=== PATIENT | male | born 1980 | race Caucasian/White ===

== ENCOUNTER 2017-09-18 13:07 | Inpatient (IN) | payer SELFPAY ==
[2017-09-18] MEDS ORDERED: CEFTRIAXONE INJ 1000 MG VIAL IV ONE (14:30)
--- NOTE | 2017-09-18 14:30 | ER Document Report ---
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 No chills or sweats. No anticoagulants. The warm, read, lymphangitis/erythema extends from anterior left lower tibial area to left medial upper thigh. No posterior calf erythema. No hx MRSA. TRAVEL OUTSIDE OF THE [place] IN LAST 30 DAYS: No - Related Data Allergies/Adverse Reactions: No Known Allergies Allergy (Verified 09/18/17 13:08) Past Medical History - Immunizations Immunizations up to date: Yes Hx Diphtheria, Pertussis, Tetanus Vaccination: No Physical Exam - Vital signs Vitals: Temp Pulse Resp BP Pulse Ox 100.1 F 120 H 16 149/83 H 96 09/18/17 13:12 09/18/17 13:12 09/18/17 13:12 09/18/17 13:12 09/18/17 13:12 Course - Vital Signs Vital signs: Temp Pulse Resp BP Pulse Ox 100.1 F 120 H 16 149/83 H 96 09/18/17 13:12 09/18/17 13:12 09/18/17 13:12 09/18/17 13:12 09/18/17 13:12
[2017-09-18] MEDS ORDERED: VANCOMYCIN HCL INJ 1000 MG VIAL IV ONE (14:33)
[2017-09-18 15:39] LABS: ABSOLUTE LYMPHOCYTES (AUTO) 1.2 10^3/uL (0.5-4.7); ABSOLUTE MONOCYTES (AUTO) 0.8 10^3/uL (0.1-1.4); ABSOLUTE NEUT (AUTO) 8.4 10^3/uL (1.7-8.2); BASOPHILS % (AUTO) 0.3 % (0-2); HEMATOCRIT 43.8 % (37.9-51.0); HEMOGLOBIN 15.4 g/dL (13.5-17.0); LYMPHOCYTES % (AUTO) 11.6 % (13-45); MEAN CORPUSCULAR HEMOGLOBIN 31.5 pg (27.0-33.4); MEAN CORPUSCULAR HGB CONC 35.2 g/dL (32.0-36.0); MEAN CORPUSCULAR VOLUME 90 fl (80-97); MONOCYTES % (AUTO) 7.6 % (3-13); PLATELET COUNT 175 10^3/uL (150-450); RED BLOOD COUNT 4.88 10^6/uL (4.35-5.55); RED CELL DISTRIBUTION WIDTH 12.6 % (11.5-14.0); SEGMENTED NEUTROPHILS % (AUTO) 80.5 % (42-78); TOTAL CELLS COUNTED % (AUTO) 100 %; WHITE BLOOD COUNT 10.5 10^3/uL (4.0-10.5)
[2017-09-18 15:54] LABS: ALANINE AMINOTRANSFERASE 44 U/L (21-72); ALKALINE PHOSPHATASE 75 U/L (38-126); ANION GAP 8 (5-19); ASPARTATE AMINO TRANSFERASE 36 U/L (17-59); BILIRUBIN,DIRECT 0.3 mg/dL (0.0-0.4); BILIRUBIN,TOTAL 0.9 mg/dL (0.2-1.3); BLOOD UREA NITROGEN 10 mg/dL (7-20); CALCIUM 9.2 mg/dL (8.4-10.2); CARBON DIOXIDE 28 mmol/L (22-30); CHLORIDE 99 mmol/L (98-107); GLUCOSE 123 mg/dL (75-110); SODIUM 134.9 mmol/L (137-145); TOTAL PROTEIN 7.2 g/dL (6.3-8.2)
--- NOTE | 2017-09-18 16:05 | ER Document Report ---
ED Skin Rash/Insect Bite/Abscs - General Mode of Arrival: Ambulatory Information source: Patient TRAVEL OUTSIDE OF THE [place] IN LAST 30 DAYS: No <JIGAR HOOD - Last Filed: 09/18/17 16:47> <MICHEAL GODINEZ - Last Filed: 09/21/17 09:29> - General Chief Complaint: Leg Pain Stated Complaint: LEG PAIN Time Seen by Provider: 09/18/17 14:24 Notes: Patient is a 36-year-old male who presents to the emergency department today with complaints of a left lower extremity rash. Patient states 2 days ago he was helping his sister move and he thought he might have pulled a thigh muscle but thought nothing of it. Patient also mentions that he knows that he hit his left medial lawson on a bed frame but did not think anything of that either at the time. Patient states the next day when he woke up (yesterday) he had this rash. Patient states it does not seem to be moving "that fast" and describes it as being essentially the same over the last 24 hours. Patient denies a history of diabetes. (JIGAR HOOD) - Related Data Allergies/Adverse Reactions: No Known Allergies Allergy (Verified 09/18/17 13:08) Past Medical History - General Information source: Patient - Social History Smoking Status: Never Smoker Cigarette use (# per day): No Frequency of alcohol use: None Drug Abuse: None Lives with: Family Family History: Reviewed & Not Pertinent - Medical History Medical History: Negative Endocrine Medical History: Denies: Hx Diabetes Mellitus Type 1, Hx Diabetes Mellitus Type 2 Surgical Hx: Negative - Immunizations Immunizations up to date: Yes Hx Diphtheria, Pertussis, Tetanus Vaccination: No <JIGAR HOOD - Last Filed: 09/18/17 16:47> Review of Systems - Review of Systems Constitutional: No symptoms reported EENT: No symptoms reported Cardiovascular: No symptoms reported Respiratory: No symptoms reported Gastrointestinal: No symptoms reported Genitourinary: No symptoms reported Male Genitourinary: No symptoms reported Musculoskeletal: No symptoms reported Skin: See HPI, Rash - LLE w/ pain Hematologic/Lymphatic: No symptoms reported Neurological/Psychological: No symptoms reported -: Yes All other systems reviewed and negative <JIGAR HOOD - Last Filed: 09/18/17 16:47> Physical Exam <JIGAR HOOD - Last Filed: 09/18/17 16:47> <MICHEAL GODINEZ - Last Filed: 09/21/17 09:29> - Vital signs Vitals: Temp Pulse Resp BP Pulse Ox 100.1 F 120 H 16 149/83 H 96 09/18/17 13:11 09/18/17 13:11 09/18/17 13:11 09/18/17 13:11 09/18/17 13:11 - Notes Notes: Physical Exam: General: Alert, appears well. HEENT: Normocephalic. Atraumatic. PERRL. Extraocular movements intact. Oropharynx clear. Neck: Supple. Non-tender. Respiratory: No respiratory distress. Clear and equal breath sounds bilaterally. Cardiovascular: Tachycardic, regular rhythm. Abdominal: Normal Inspection. Non-tender. No distension. Normal Bowel Sounds. Back: Non-tender. No deformity or step off. Extremities: Moves all four extremities. Upper extremities: Normal inspection. Normal ROM. Lower extremities: See skin exam. Pitting edema of left lower extremity. Normal ROM. Neurological: Normal cognition. AAOx4. Normal speech. Psychological: Normal affect. Normal Mood. Skin: LLE is hot to the touch. Large area of purpura to distal LLE with associated erythema tracking up to the proximal inner thigh. Tracking erythema is blanchable. Small bulla to the medial distal left lower extremity, lesion measuring 0.5 cm. (JIGAR HOOD) Course - Laboratory Result Diagrams: 09/18/17 15:22 09/18/17 15:22 <JIGAR HOOD - Last Filed: 09/18/17 16:47> - Laboratory Result Diagrams: 09/21/17 04:46 09/21/17 04:46 <MICHEAL GODINEZ - Last Filed: 09/21/17 09:29> - Re-evaluation Re-evalutation: 09/18/17 17:03 Patient found to have cellulitis of left lower extremity and absence of any necrotizing fasciitis per CT. Patient started on Zosyn and vancomycin. Patient will be admitted to Dr. Fuchs for medical management. (MICHEAL GODINEZ) - Vital Signs Vital signs: Temp Pulse Resp BP Pulse Ox 98.1 F 77 18 115/55 L 99 09/21/17 07:13 09/21/17 07:13 09/21/17 07:13 09/21/17 07:13 09/21/17 07:13 - Laboratory Laboratory results interpreted by me: 09/18/17 09/18/17 09/18/17 15:22 15:22 15:22 Seg Neutrophils % 80.5 H Lymphocytes % 11.6 L Absolute Neutrophils 8.4 H Sodium 134.9 L Glucose 123 H Creatine Kinase 381 H C-Reactive Protein 198.8 H Discharge <JIGAR HOOD - Last Filed: 09/18/17 16:47> - Discharge Admitting Provider: Jef Unit Admitted: IMCU <MICHEAL GODINEZ - Last Filed: 09/21/17 09:29> - Discharge Clinical Impression: Cellulitis Qualifiers: Site of cellulitis: extremity Site of cellulitis of extremity: lower extremity Laterality: left Qualified Code(s): L03.116 - Cellulitis of left lower limb Disposition: ADMITTED INPATIENT Scribe Attestation: 09/21/17 09:28 I personally performed the services described in the documentation, reviewed and edited the documentation which was dictated to the scribe in my presence, and it accurately records my words and actions. (MICHEAL GODINEZ) Scribe Documentation - Scribe Written by Marya:: Marya Macias, 09/18/2017 1702 acting as scribe for :: Jason <JIGAR HOOD - Last Filed: 09/18/17 16:47>
[2017-09-18] MEDS ORDERED: NORMAL SALINE 1000 ML 1,000 ML IV ONE (16:06)
[2017-09-18] MEDS ORDERED: PIPERACILLIN/TAZOBACTAM 3.375 GM VIAL IV ONE (16:11)
--- NOTE | 2017-09-18 16:48 | RADIOLOGY REPORT (SQ) ---
EXAM DESCRIPTION: CT LEFT LOWER EXTREMITY WITH COMPLETED DATE/TIME: 09/18/2017 4:39 pm REASON FOR STUDY: concern for nec fasicatis LLE COMPARISON: None. TECHNIQUE: Postcontrast axial imaging performed through the left lower extremity with reformatted co maurice and sagittal imaging windowed for bone and soft tissues. Images saved to PACS. 3D IMAGING: Were 3D images as MIP, SSD, or volume rendering performed at the work station? Yes. All CT scanners at this facility use dose modulation, iterative reconstruction, and/or weight based d osing when appropriate to reduce radiation dose to as low as reasonably achievable (ALARA). [facility]: Dose Right [facility]: CareDose [facility]: Dose Right [facility]: Teradose 4D [facility]: [facility] CONTRAST TYPE AND DOSE: contrast/concentration: Isovue 370.00 mg/ml; Total Contrast Delivered: 70.0 ml; Total Saline Delivered: 65.6 ml RENAL FUNCTION: GFR > 60. LIMITATIONS: None. RADIATION DOSE: CT Rad equipment meets quality standard of care and radiation dose reduction techniq ues were employed. CTDIvol: 4.2 mGy. DLP: 438 mGy-cm.mGy. FINDINGS: SOFT TISSUES: Inflammation in the subcutaneous fat in the lower extremity below the knee. No abscess or foreign body. No soft tissue gas. BONES: No acute fracture. No dislocation. MINERALIZATION: Normal. ENHANCEMENT: No abnormal enhancement. OTHER: No other significant finding. IMPRESSION: Cellulitis. No evidence of necrotizing fasciitis. TECHNICAL DOCUMENTATION: JOB ID: [id number] Quality ID # [id number]: Final reports with documentation of one or more dose reduction techniques (e.g., Au tomated exposure control, adjustment of the mA and/or kV according to patient size, use of iterative reconstruction technique) 2010 [employer]- All Rights Reserved Reading location - IP/workstation name: [email or web address]
[2017-09-18] MEDS ORDERED: ACETAMINOPHEN 325 MG TABLET PO ONE (16:58)
[2017-09-18 16:59] LABS: C-REACTIVE PROTEIN 198.8 mg/L (<10.0)
[2017-09-18] MEDS ORDERED: ACETAMINOPHEN 325 MG TABLET PO PRN (17:26)
[2017-09-18] MEDS ORDERED: VANCOMYCIN HCL 0 MG in DEXTROSE 5%-WATER 250 ML IV NR (17:30)
[2017-09-18] MEDS ORDERED: PIPERACILLIN SODIUM/TAZOBACTAM 4.5 GM in NORMAL SALINE 100 ML IV SCH (18:00)
[2017-09-18] MEDS: NORMAL SALINE 1000 ML 1,000 ML IV PRN (18:27)
[2017-09-18] MEDS: KETOROLAC TROMETHAMINE INJ/PF 30 MG/1 ML SDV IV SCH (18:39)
--- NOTE | 2017-09-18 20:29 | RADIOLOGY REPORT (SQ) ---
EXAM DESCRIPTION: VENOUS UNILATERAL LOWER COMPLETED DATE/TIME: 09/18/2017 7:45 pm REASON FOR STUDY: LLE edema and pain COMPARISON: None. TECHNIQUE: Dynamic and static swenson scale and color images acquired of the left leg venous system. Se lected spectral images acquired with additional compression and augmentation maneuvers. The contralat eral common femoral vein and saphenofemoral junction were also imaged. Images stored on PACS. LIMITATIONS: None. FINDINGS: COMMON FEMORAL: Normal phasicity, compression and augmentation. No visualized echogenic ma terial on swenson scale. No defects on color images. FEMORAL: Normal compression and augmentation. No visualized echogenic material on swenson scale. No defe cts on color images. POPLITEAL: Normal compression, augmentation. No visualized echogenic material on swenson scale. No defec ts on color images. CALF VESSELS: Normal compression, augmentation. No visualized echogenic material on swenson scale. No de fects on color images. GSV and SSV: Normal compression, augmentation. No visualized echogenic material on swenson scale. No def ects on color images. ANY DEEP VENOUS INSUFFICIENCY: Not evaluated. ANY EVIDENCE OF POPLITEAL CYST: No. OTHER: No other significant finding. CONTRALATERAL COMMON FEMORAL VEIN AND SAPHENOFEMORAL JUNCTION: Normal phasicity, compression and augmentation. No visualized echogenic material on swenson scale. No de fects on color images. IMPRESSION: NO EVIDENCE OF DVT OR SVT IN THE LEFT LEG. TECHNICAL DOCUMENTATION: JOB ID: [id number] [employer]- All Rights Reserved Reading location - IP/workstation name: [email or web address]
[2017-09-18] MEDS: VANCOMYCIN HCL 1,500 MG in DEXTROSE 5%-WATER 250 ML IV SCH (22:43)
[2017-09-19] MEDS: PIPERACILLIN SODIUM/TAZOBACTAM 4.5 GM in NORMAL SALINE 100 ML IV SCH ×4 (01:47→17:14)
[2017-09-19] MEDS: KETOROLAC TROMETHAMINE INJ/PF 30 MG/1 ML SDV IV SCH ×4 (01:47→17:13)
[2017-09-19 05:44] LABS: HEMATOCRIT 38.2 % (37.9-51.0); MEAN CORPUSCULAR HEMOGLOBIN 31.2 pg (27.0-33.4); MEAN CORPUSCULAR HGB CONC 34.5 g/dL (32.0-36.0); MEAN CORPUSCULAR VOLUME 90 fl (80-97); PLATELET COUNT 160 10^3/uL (150-450); RED BLOOD COUNT 4.23 10^6/uL (4.35-5.55); RED CELL DISTRIBUTION WIDTH 12.9 % (11.5-14.0)
[2017-09-19 05:57] LABS: HEMOGLOBIN 13.2 g/dL (13.5-17.0)
[2017-09-19 06:03] LABS: ANION GAP 9 (5-19); BLOOD UREA NITROGEN 11 mg/dL (7-20); CALCIUM 8.8 mg/dL (8.4-10.2); CARBON DIOXIDE 26 mmol/L (22-30); CHLORIDE 103 mmol/L (98-107); CREATINE KINASE 223 U/L (55-170); GLUCOSE 113 mg/dL (75-110); POTASSIUM 4.4 mmol/L (3.6-5.0); SODIUM 137.6 mmol/L (137-145)
[2017-09-19] MEDS: VANCOMYCIN HCL 1,500 MG in DEXTROSE 5%-WATER 250 ML IV SCH ×3 (06:49→22:21)
--- NOTE | 2017-09-19 08:22 | HISTORY AND PHYSICAL E ---
History and Physical NAME: KRISTY HEADLEY : 1980 AGE: 36Y ADMITTED: 09/18/2017 ROOM: 414 CODE STATUS: Full code. PRIMARY CARE PHYSICIAN: Yet to be established. CHIEF COMPLAINT: Left lower extremity redness and pain. HISTORY OF PRESENT ILLNESS: The patient is a 36-year-old male with no significant past medical history other than tobacco dependency. The patient presented to the Emergency Department with a chief complaint of redness and pain of his right lower extremity. According to the patient on Monday, he was helping a friend move, which is about 48 hours ago, when he thought he may have pulled a muscle in his back or that he may have accidentally struck it on something. The patient stated that he later began developing pain in his medial left lawson after he struck it on the bed frame. The patient did stated that he did not think anything of it at that time, and when he awakened the next morning, which was yesterday, he noted a rash of his lower extremity as well as some redness. The patient felt that it was moving quite fast and had moved up his leg above his knee. The patient denies any diabetes, history of IV drugs, and no history of vasculitis. The patient felt fever and overall general malaise and came to the Emergency Department for evaluation. Upon presentation in the Emergency Department, the patient was found have a temperature of 102.5 with a heart rate of 120. The patient's blood pressure was stable at 149/83. The patient was noted to have a C-reactive protein of 198 and given these findings, the patient was referred to the Hospitalist for admission and management. The patient's last tetanus shot was in 2016. PAST MEDICAL HISTORY: Negative. ALLERGIES: No known drug allergies. HOME MEDICATIONS: None. SOCIAL HISTORY: The patient currently resides at home. He works full-time at [employer]. He has just recently relocated to this area. The patient does smoke at this time, a 1/2 pack of cigarettes a day. The patient also admits to about monthly alcohol use in a social way. Denies any illicit drug use. Never used IV drugs. FAMILY MEDICAL HISTORY: The patient's mother is alive with fibromyalgia. The patient's father is alive with no known medical problems. The patient has one sister who is healthy, and a daughter who is also healthy. He denies any family history of chronic medical problems. REVIEW OF SYSTEMS: CONSTITUTIONAL: The patient denies any fevers or chills. The patient denies any loss of appetite. He does admit to fevers, chills, general malaise. SKIN: The patient denies any diaphoresis, bruising, no itching. Does admit to redness and what he described as a rash of his left lower extremity. HEENT: The patient denies any nasal drainage or hearing loss. No sore throat or headache. CARDIOVASCULAR: The patient denies any chest pain, heart palpitations, or shortness of breath. No orthopnea or dyspnea. RESPIRATORY: The patient denies any cough, sputum production or hemoptysis. GASTROINTESTINAL: The patient denies any nausea, vomiting, diarrhea, abdominal pain, blood hematemesis, constipation, melena, or hematochezia. GENITOURINARY: Denies any hematuria, pyuria, or dysuria. MUSCULOSKELETAL: The patient denies any chronic joint pain and does admit to acute joint pain of the left lower extremity. NEUROLOGICAL: No seizures, tremors, or loss of consciousness. HEMATOLOGIC: Denies any michi bleeding, easy bruising. ENDOCRINE: Denies any recent weight changes. PSYCHIATRIC: Denies any suicidal or homicidal ideations. PHYSICAL EXAMINATION: GENERAL: On examination, the patient is a well-developed, well-nourished, 36-year-old female who is awake, alert, and oriented to person, place, time, and situation. He is verbal, conversational, does not appear to be in any acute distress. VITAL SIGNS: Temperature is 102.5. Pulse 110. Respirations 16. Blood pressure is 149/83. Oxygen saturation is 96% on room air. SKIN: Warm, dry, no rash. He is diaphoretic. HEENT: Pupils equal, round, and reactive to light and accommodation. Sclerae are not icteric. There are no mouth lesions. Tongue is midline. Neck is supple. There is no JVD. No palpable lymphadenopathy or thyromegaly. Patient had poor dentition. CARDIOVASCULAR: Heart is regular, tachycardic. No murmur or rub. CHEST: Clear, symmetrical, unlabored. ABDOMEN: Soft, nontender, Nondistended. Bowel sounds are present. No palpable organomegaly. BACK: No CVA tenderness or sacral edema. EXTREMITIES: No clubbing, cyanosis, edema. The patient does have some pitting edema of the left lower extremity with redness and purpura noted. This area of streaking has been marked with a skin marker. The patient does have +1 pedal pulses noted bilaterally with appropriate sensation. PSYCHIATRIC: Denies any suicidal or homicidal ideation. NEUROLOGIC: Cranial nerves 2 through 12 are grossly intact. DIAGNOSTIC STUDIES: Hematology done on 09/18/2017: WBC 10.5, hemoglobin 15.4, hematocrit 43.8, platelet count of 475,000. Chemistry panel done on 09/18/2017: Sodium is 134, potassium 4.0, chloride 99, carbon dioxide 28, BUN 10, creatinine is 0.74, glucose 123. Lactic acid 1.17. Calcium is 9.2. Bilirubin 0.9. AST 36, ALT 44, alkaline phosphatase 75. CK 381. C-reactive protein is 198. Total protein is 7.2. Albumin 4.0. Blood cultures done on 09/18/[address] of the lower extremity obtained on 09/18/2017 with contrast reveals cellulitis without evidence of necrotizing fasciitis. IMPRESSION AND PLAN: 1. Left lower extremity cellulitis. This is quite concerning with streaking. We will continue broad-spectrum antibiotic coverage with vancomycin and Zosyn. We will also schedule 24 hours of Toradol for anti-inflammatory properties. We will monitor closely. If symptoms do not improve, the patient may require re-imaging as there is some concern for a potential for necrotizing fasciitis; however, the patient clinically feels slightly better at this time. The patient is up-to-date on his tetanus shot. Will add an A1c and follow. 2. Sepsis secondary to number one due to the patient's C-reactive protein, tachycardia, fever, and overall malaise. The patient has received a fluid bolus and will monitor closely. Repeat CBC in the a.m. and follow. 3. Tobacco dependency. I spent 3 minutes discussing tobacco cessation and education and patient declines any pharmacological intervention at this time but is agreeable to a p.r.n. nicotine patch. DISPOSITION: THE PATIENT IS A FULL CODE. Pending patient's symptomatology and diagnostic findings, we will reevaluate in the a.m. Will admit the patient to inpatient telemetry as the patient's suspected length should surpass 2 midnights. Time spent on this admission, including assessment and plan, physical examination, patient education, and review of records is 45 minutes. DICTATING PHYSICIAN: KRISTY YO NP [id number] PHY#: [id number] ID: [id number] JOB#: [id number] ACCT: [id number] cc:ADELINE HOLGUIN M.D. >
[2017-09-19] MEDS: ENOXAPARIN SODIUM INJ 40 MG/0.4 ML DISP.SYRIN SUBCUT SCH (11:17)
[2017-09-19] MEDS ORDERED: NICOTINE 14 MG/24 HR PATCH.TD24 TD ONE (13:00)
--- NOTE | 2017-09-19 15:58 | PDOC PROGRESS REPORT ---
Subjective Progress Note for:: 09/19/17 Subjective:: 36-year-old male with no significant past medical history other than tobacco use presented to the emergency room on September 18 with left lower extremity pain and redness and was noted to be febrile and tachycardic and diagnosed with left lower extremity cellulitis. CT scan of the left lower extremity September 18 showed inflammation of the subcutaneous fat in the lower extremity below the knee no abscess or foreign body no soft tissue gas no evidence of necrotizing fasciitis. He is day 2 of vancomycin and Zosyn. 2 Sets of blood cultures were drawn. Results are pending. Redness and swelling of the leg has improved. He still has some soreness upon weightbearing but much improved. He is requesting a nicotine patch peer Reason For Visit: LLE CELLULITIS Physical Exam Vital Signs: Temp Pulse Resp BP Pulse Ox 99.9 F 81 18 112/51 L 99 09/19/17 03:28 09/19/17 07:00 09/19/17 03:28 09/19/17 03:28 09/19/17 03:28 Intake & Output 09/18/17 09/19/17 09/20/17 06:59 06:59 06:59 Intake Total 1965 Balance 1965 Weight 102 kg General appearance: PRESENT: no acute distress Ear exam: PRESENT: normal external ear exam Neck exam: ABSENT: tenderness, tracheal deviation Respiratory exam: PRESENT: clear to auscultation falguni, symmetrical, unlabored Cardiovascular exam: PRESENT: RRR GI/Abdominal exam: PRESENT: normal bowel sounds, soft. ABSENT: tenderness Rectal exam: PRESENT: deferred Additional comments: He has cellulitis of the leg with some streaking up into his inner thigh on the left. The area of redness has improved and is receding based on the skin markings done by the admitting provider. Results Laboratory Results: 09/19/17 04:58 09/19/17 04:58 09/19/17 09/19/17 04:58 04:58 WBC 11.0 H RBC 4.23 L Hgb 13.2 L D Hct 38.2 MCV 90 MCH 31.2 MCHC 34.5 RDW 12.9 Plt Count 160 Sodium 137.6 Potassium 4.4 Chloride 103 Carbon Dioxide 26 Anion Gap 9 BUN 11 Creatinine 0.72 Est GFR ( Amer) > 60 Est GFR (Non-Af Amer) > 60 Glucose 113 H Calcium 8.8 09/19/17 04:58 Creatine Kinase 223 H Impressions: Venous Doppler Study 09/18/17 00:00 IMPRESSION: NO EVIDENCE OF DVT OR SVT IN THE LEFT LEG. Lower Extremity CT 09/18/17 16:06 IMPRESSION: Cellulitis. No evidence of necrotizing fasciitis. Assessment & Plan - Diagnosis (1) Cellulitis Qualifiers: Site of cellulitis: extremity Site of cellulitis of extremity: lower extremity Laterality: left Qualified Code(s): L03.116 - Cellulitis of left lower limb Is this a current diagnosis for this admission?: Yes Plan: Day 2 of Zosyn and vancomycin. Analgesics as needed for pain. (2) Fever Is this a current diagnosis for this admission?: Yes Plan: Due to cellulitis. Improving (3) Tachycardia Is this a current diagnosis for this admission?: Yes Plan: Due to acute infection. Improving. (4) Nicotine dependence Is this a current diagnosis for this admission?: Yes Plan: Nicotine patch ordered. - Time Time Spent with patient: 25-34 minutes
[2017-09-19 22:15] LABS: VANCOMYCIN,TROUGH 10.2 ug/mL (5.0-20.0)
[2017-09-20] MEDS: PIPERACILLIN SODIUM/TAZOBACTAM 4.5 GM in NORMAL SALINE 100 ML IV SCH ×4 (00:14→17:52)
[2017-09-20] MEDS: KETOROLAC TROMETHAMINE INJ/PF 30 MG/1 ML SDV IV SCH ×2 (00:15→05:15)
[2017-09-20] MEDS: VANCOMYCIN HCL 1,500 MG in DEXTROSE 5%-WATER 250 ML IV SCH ×2 (05:16→14:26)
[2017-09-20] MEDS: LACTOBACILLUS ACIDOPHILUS 250 MG TAB PO SCH ×2 (10:01→17:51)
[2017-09-20] MEDS: NICOTINE 14 MG/24 HR PATCH.TD24 TD SCH (10:01)
[2017-09-20] MEDS: ENOXAPARIN SODIUM INJ 40 MG/0.4 ML DISP.SYRIN SUBCUT SCH (10:02)
[2017-09-20] MEDS: OXYCODONE HCL IR 5 MG TABLET PO PRN (14:27)
--- NOTE | 2017-09-20 14:27 | Progress Note ---
Provider Note Provider Note: ID Consult Note Asked to review patient's chart by Pharmacy. Mr Guido is a 36 yo man who presented on 09/18/17 with fever to 102.5 F and erythema and swelling of the left leg. There was ascending streaking. No abscess or purulence was described in the notes. He is on 1500 mg vancomycin q8h and Zosyn. He has had improvement in the redness and swelling of his leg. Impression/Recommendations Nonpurulent LLE cellulitis - improving; nonpurulent cellulitis is most likely due to Strep species. Recommend de-escalating vancomycin/Zosyn to cefazolin IV 2g q8h. Arcenio Nielsen MD pager [phone]
--- NOTE | 2017-09-20 18:46 | PDOC PROGRESS REPORT ---
Subjective Progress Note for:: 09/20/17 Subjective:: Doing better, redness and swelling slowly improving Reason For Visit: LLE CELLULITIS Physical Exam Vital Signs: Temp Pulse Resp BP Pulse Ox 99.3 F 84 16 125/63 99 09/20/17 14:54 09/20/17 14:54 09/20/17 14:54 09/20/17 14:54 09/20/17 14:54 Intake & Output 09/19/17 09/20/17 09/21/17 06:59 06:59 06:59 Intake Total 1965 3611 1360 Output Total 5 0 Balance 1964 360 1360 Weight 102 kg General appearance: PRESENT: no acute distress Ear exam: PRESENT: normal external ear exam Neck exam: ABSENT: tracheal deviation Respiratory exam: PRESENT: clear to auscultation falguni, symmetrical, unlabored Cardiovascular exam: PRESENT: RRR GI/Abdominal exam: PRESENT: normal bowel sounds, soft. ABSENT: tenderness Rectal exam: PRESENT: deferred Extremities exam: ABSENT: calf tenderness, pedal edema Results Laboratory Results: 09/19/17 04:58 09/19/17 04:58 09/19/17 04:58 Creatine Kinase 223 H Impressions: Venous Doppler Study 09/18/17 00:00 IMPRESSION: NO EVIDENCE OF DVT OR SVT IN THE LEFT LEG. Lower Extremity CT 09/18/17 16:06 IMPRESSION: Cellulitis. No evidence of necrotizing fasciitis. Assessment & Plan - Diagnosis (1) Cellulitis Qualifiers: Site of cellulitis: extremity Site of cellulitis of extremity: lower extremity Laterality: left Qualified Code(s): L03.116 - Cellulitis of left lower limb Is this a current diagnosis for this admission?: Yes Plan: Day 3 of Zosyn and vancomycin- switch to Ancef. IF recommendations appreciated. Analgesics as needed for pain. (2) Fever Is this a current diagnosis for this admission?: Yes Plan: Due to cellulitis. Improving (3) Tachycardia Is this a current diagnosis for this admission?: Yes Plan: Due to acute infection. Improving. (4) Nicotine dependence Is this a current diagnosis for this admission?: Yes Plan: Nicotine patch ordered. - Time Time Spent with patient: 25-34 minutes
[2017-09-20] MEDS: CEFAZOLIN 2 GM/D5W RTU 2 GM/50 ML RTUPB IV SCH (21:46)
[2017-09-21] MEDS: CEFAZOLIN 2 GM/D5W RTU 2 GM/50 ML RTUPB IV SCH ×3 (05:05→21:03)
[2017-09-21 05:17] LABS: ABSOLUTE BASOPHILS # (AUTO) 0.1 10^3/uL (0.0-0.2); ABSOLUTE EOSINOPHILS # (AUTO) 0.2 10^3/uL (0.0-0.6); ABSOLUTE LYMPHOCYTES (AUTO) 1.5 10^3/uL (0.5-4.7); ABSOLUTE MONOCYTES (AUTO) 0.6 10^3/uL (0.1-1.4); ABSOLUTE NEUT (AUTO) 6.3 10^3/uL (1.7-8.2); BASOPHILS % (AUTO) 0.8 % (0-2); EOSINOPHILS % (AUTO) 1.8 % (0-6); HEMATOCRIT 35.5 % (37.9-51.0); HEMOGLOBIN 12.1 g/dL (13.5-17.0); LYMPHOCYTES % (AUTO) 17.5 % (13-45); MEAN CORPUSCULAR HEMOGLOBIN 31.1 pg (27.0-33.4); MEAN CORPUSCULAR HGB CONC 34.2 g/dL (32.0-36.0); MEAN CORPUSCULAR VOLUME 91 fl (80-97); MONOCYTES % (AUTO) 7.2 % (3-13); PLATELET COUNT 176 10^3/uL (150-450); RED CELL DISTRIBUTION WIDTH 12.9 % (11.5-14.0); SEGMENTED NEUTROPHILS % (AUTO) 72.7 % (42-78); TOTAL CELLS COUNTED % (AUTO) 100 %; WHITE BLOOD COUNT 8.7 10^3/uL (4.0-10.5)
[2017-09-21 05:41] LABS: ANION GAP 7 (5-19); BLOOD UREA NITROGEN 11 mg/dL (7-20); CALCIUM 8.5 mg/dL (8.4-10.2); CARBON DIOXIDE 24 mmol/L (22-30); CHLORIDE 113 mmol/L (98-107); GLUCOSE 100 mg/dL (75-110); POTASSIUM 3.8 mmol/L (3.6-5.0); SODIUM 143.8 mmol/L (137-145)
[2017-09-21] MEDS: NORMAL SALINE 1000 ML 1,000 ML IV PRN (09:27)
[2017-09-21] MEDS: ENOXAPARIN SODIUM INJ 40 MG/0.4 ML DISP.SYRIN SUBCUT SCH (09:28)
[2017-09-21] MEDS: LACTOBACILLUS ACIDOPHILUS 250 MG TAB PO SCH ×2 (09:28→16:58)
[2017-09-21] MEDS: NICOTINE 14 MG/24 HR PATCH.TD24 TD SCH (09:29)
[2017-09-21] MEDS: OXYCODONE HCL IR 5 MG TABLET PO PRN ×2 (09:45→21:03)
--- NOTE | 2017-09-21 12:06 | PDOC PROGRESS REPORT ---
Subjective Progress Note for:: 09/21/17 Subjective:: Redness and swelling slowly improving Reason For Visit: LLE CELLULITIS Physical Exam Vital Signs: Temp Pulse Resp BP Pulse Ox 98.1 F 77 18 115/55 L 99 09/21/17 07:13 09/21/17 07:13 09/21/17 07:13 09/21/17 07:13 09/21/17 07:13 Intake & Output 09/20/17 09/21/17 09/22/17 06:59 06:59 06:59 Intake Total 3611 2691 Output Total 5 0 Balance 3606 2691 General appearance: PRESENT: no acute distress Eye exam: PRESENT: EOMI Ear exam: PRESENT: normal external ear exam Mouth exam: PRESENT: moist, neck supple Respiratory exam: PRESENT: clear to auscultation falguni, symmetrical, unlabored Cardiovascular exam: PRESENT: RRR GI/Abdominal exam: PRESENT: normal bowel sounds, soft. ABSENT: tenderness Rectal exam: PRESENT: deferred Neurological exam: PRESENT: alert, awake, oriented to person Results Laboratory Results: 09/21/17 04:46 09/21/17 04:46 09/21/17 09/21/17 04:46 04:46 WBC 8.7 RBC 3.90 L Hgb 12.1 L Hct 35.5 L MCV 91 MCH 31.1 MCHC 34.2 RDW 12.9 Plt Count 176 Seg Neutrophils % 72.7 Lymphocytes % 17.5 Monocytes % 7.2 Eosinophils % 1.8 Basophils % 0.8 Absolute Neutrophils 6.3 Absolute Lymphocytes 1.5 Absolute Monocytes 0.6 Absolute Eosinophils 0.2 Absolute Basophils 0.1 Sodium 143.8 Potassium 3.8 Chloride 113 H Carbon Dioxide 24 Anion Gap 7 BUN 11 Creatinine 0.82 Est GFR ( Amer) > 60 Est GFR (Non-Af Amer) > 60 Glucose 100 Calcium 8.5 Magnesium 2.1 09/19/17 04:58 Creatine Kinase 223 H Impressions: Venous Doppler Study 09/18/17 00:00 IMPRESSION: NO EVIDENCE OF DVT OR SVT IN THE LEFT LEG. Lower Extremity CT 09/18/17 16:06 IMPRESSION: Cellulitis. No evidence of necrotizing fasciitis. Assessment & Plan - Diagnosis (1) Cellulitis Qualifiers: Site of cellulitis: extremity Site of cellulitis of extremity: lower extremity Laterality: left Qualified Code(s): L03.116 - Cellulitis of left lower limb Is this a current diagnosis for this admission?: Yes Plan: day 4 of antibiotics switched to Ancef after 3 days of Vanc and Zosyn.. ID recommendations appreciated. Analgesics as needed for pain. (2) Fever Is this a current diagnosis for this admission?: Yes (3) Tachycardia Is this a current diagnosis for this admission?: Yes (4) Nicotine dependence Is this a current diagnosis for this admission?: Yes - Time Time Spent with patient: 25-34 minutes
[2017-09-22] MEDS: CEFAZOLIN 2 GM/D5W RTU 2 GM/50 ML RTUPB IV SCH (05:22)
[2017-09-22] MEDS: ENOXAPARIN SODIUM INJ 40 MG/0.4 ML DISP.SYRIN SUBCUT SCH (09:56)
[2017-09-22] MEDS: LACTOBACILLUS ACIDOPHILUS 250 MG TAB PO SCH ×2 (09:56→17:56)
[2017-09-22] MEDS: NICOTINE 14 MG/24 HR PATCH.TD24 TD SCH (09:56)
[2017-09-22] MEDS ORDERED: CLINDAMYCIN HCL 150 MG CAPSULE PO ONE (15:00)
--- NOTE | 2017-09-22 16:39 | PDOC PROGRESS REPORT ---
Subjective Progress Note for:: 09/22/17 Subjective:: He continues to have significant blisters. The area of erythema is receding. Reason For Visit: LLE CELLULITIS Physical Exam Vital Signs: Temp Pulse Resp BP Pulse Ox 98.5 F 74 20 114/54 L 95 09/22/17 07:11 09/22/17 07:11 09/22/17 07:11 09/22/17 07:11 09/22/17 07:11 Intake & Output 09/21/17 09/22/17 09/23/17 06:59 06:59 06:59 Intake Total 2691 2906 Output Total 0 Balance 2691 2906 General appearance: PRESENT: no acute distress Eye exam: PRESENT: EOMI Ear exam: PRESENT: normal external ear exam Neck exam: ABSENT: tracheal deviation Respiratory exam: PRESENT: clear to auscultation falguni, unlabored Cardiovascular exam: PRESENT: RRR GI/Abdominal exam: PRESENT: normal bowel sounds, soft. ABSENT: tenderness Rectal exam: PRESENT: deferred Neurological exam: PRESENT: alert - erythema and blistering Left leg Results Laboratory Results: 09/21/17 04:46 09/21/17 04:46 09/19/17 09/21/17 04:58 04:46 Creatine Kinase 223 H 55 Impressions: Venous Doppler Study 09/18/17 00:00 IMPRESSION: NO EVIDENCE OF DVT OR SVT IN THE LEFT LEG. Lower Extremity CT 09/18/17 16:06 IMPRESSION: Cellulitis. No evidence of necrotizing fasciitis. Assessment & Plan - Diagnosis (1) Cellulitis Qualifiers: Site of cellulitis: extremity Site of cellulitis of extremity: lower extremity Laterality: left Qualified Code(s): L03.116 - Cellulitis of left lower limb Is this a current diagnosis for this admission?: Yes Plan: day 5 of antibiotics. He received 4 days of IV antibiotics. Today I switched him to Bactrim and clindamycin. I will see how he does on p.o. antibiotics and if he continues to improve then we can likely discharge him tomorrow. appreciated. Analgesics as needed for pain. (2) Fever Is this a current diagnosis for this admission?: Yes Plan: Due to cellulitis, resolved. (3) Tachycardia Is this a current diagnosis for this admission?: Yes Plan: Due to acute infection. Improving. (4) Nicotine dependence Is this a current diagnosis for this admission?: Yes Plan: Nicotine patch ordered. - Time Time Spent with patient: 25-34 minutes
[2017-09-22] MEDS: CLINDAMYCIN HCL 150 MG CAPSULE PO SCH ×2 (17:56→23:57)
[2017-09-22] MEDS: OXYCODONE HCL IR 5 MG TABLET PO PRN (17:59)
[2017-09-22] MEDS: SULFAMETHOXAZOLE/TRIMETHOPRIM 800-160 MG TABLET PO SCH (21:53)
[2017-09-23] MEDS: CLINDAMYCIN HCL 150 MG CAPSULE PO SCH ×2 (05:50→12:42)
[2017-09-23] MEDS: SULFAMETHOXAZOLE/TRIMETHOPRIM 800-160 MG TABLET PO SCH (10:54)
[2017-09-23] MEDS: LACTOBACILLUS ACIDOPHILUS 250 MG TAB PO SCH (10:54)
[2017-09-23] MEDS: ENOXAPARIN SODIUM INJ 40 MG/0.4 ML DISP.SYRIN SUBCUT SCH (10:55)
[2017-09-23] MEDS: NICOTINE 14 MG/24 HR PATCH.TD24 TD SCH (10:55)
--- NOTE | 2017-09-23 11:54 | PDOC DISCHARGE SUMMARY ---
General - Admit/Disc Date/PCP Admission Date/Primary Care Provider: 09/18/17 17:35 Establish Care with New PCP- see in 1 week for check up on L Leg cellulitis Discharge Date: 09/23/17 - Discharge Diagnosis (1) Cellulitis Is this a current diagnosis for this admission?: Yes Summary: Treated with antibiotics (2) Fever Is this a current diagnosis for this admission?: Yes (3) Tachycardia Is this a current diagnosis for this admission?: Yes (4) Nicotine dependence Is this a current diagnosis for this admission?: Yes - Additional Information Resuscitation Status: Full Code Discharge Diet: Regular Discharge Activity: Activity As Tolerated, Balance Activity w/Rest, Slowly Increase Activity Prescriptions: Oxycodone HCl [Oxy-Ir 5 mg Tablet] 5 mg PO Q4HP PRN 3 Days #10 tablet PRN Reason: Clindamycin HCl [Cleocin 150 mg Capsule] 300 mg PO Q6 9 Days #36 capsule Lactobacillus Acidophilus [Bacid 250 mg Tablet] 500 mg PO BID 15 Days #30 tab Nicotine [Nicoderm 14 mg/24 Hr Transdermal Patch] 1 each TD DAILY 30 Days #30 patch.[email or web address] Sulfamethoxazole/Trimethoprim [Septra-Ds 800-160 mg Tablet] 1 tab PO Q12 9 Days #18 tablet Home Medications: Acetaminophen [Tylenol 325 mg Tablet] 650 mg PO Q4HP PRN tablet 09/23/17 Clindamycin HCl [Cleocin 150 mg Capsule] 300 mg PO Q6 9 Days #36 capsule Lactobacillus Acidophilus [Bacid 250 mg Tablet] 500 mg PO BID 15 Days #30 tab Nicotine [Nicoderm 14 mg/24 Hr Transdermal Patch] 1 each TD DAILY 30 Days #30 patch.[email or web address] 09/23/17 Oxycodone HCl [Oxy-Ir 5 mg Tablet] 5 mg PO Q4HP PRN 3 Days #10 tablet 09/23/17 Sulfamethoxazole/Trimethoprim [Septra-Ds 800-160 mg Tablet] 1 tab PO Q12 9 Days #18 tablet 09/23/17 History of Present Illness History of Present Illness: 36-year-old male with no significant past medical history other than tobacco use presented to the emergency room on September 18 with left lower extremity pain and redness and was noted to be febrile and tachycardic and diagnosed with left lower extremity cellulitis. CT scan of the left lower extremity September 18 showed inflammation of the subcutaneous fat in the lower extremity below the knee no abscess or foreign body no soft tissue gas no evidence of necrotizing fasciitis. Left lower extremity venous Doppler showed no evidence of DVT. Cultures have remained negative. Redness and swelling of the leg has improved. Has been switched to p.o. antibiotics and has tolerated them well. He is on clindamycin and Bactrim. He will be given prescriptions for these to complete a 14 day course of antibiotics. He is to establish care with the primary to follow-up on his cellulitis and blistering of the left leg which has been improving progressively while he has been in the hospital. He was given a prescription for oxycodone 15 tablets 5 mg each as needed for pain Also given prescription for probiotic nicotine patch clindamycin and Bactrim. He may return to work on 10/02 Physical Exam Vital Signs: Temp Pulse Resp BP Pulse Ox 98.2 F 74 18 130/52 H 95 09/23/17 07:17 09/23/17 07:17 09/23/17 07:17 09/23/17 07:17 09/23/17 07:17 Intake & Output 09/22/17 09/23/17 09/24/17 06:59 06:59 06:59 Intake Total 2906 1808 Balance 2906 1808 General appearance: PRESENT: no acute distress Mouth exam: PRESENT: moist Teeth exam: PRESENT: poor dentation Respiratory exam: PRESENT: clear to auscultation falguni - Left leg cellulitis much improved. He has some areas of blistering which is also improving., symmetrical , unlabored Results Laboratory Results: 09/21/17 04:46 09/21/17 04:46 09/19/17 09/21/17 04:58 04:46 Creatine Kinase 223 H 55 Impressions: Venous Doppler Study 09/18/17 00:00 IMPRESSION: NO EVIDENCE OF DVT OR SVT IN THE LEFT LEG. Lower Extremity CT 09/18/17 16:06 IMPRESSION: Cellulitis. No evidence of necrotizing fasciitis. Qualifiers - * PATEINT BEING DISCHARGED WITH ANY OF THE FOLLOWING DIAGNOSIS?: No Plan Time Spent: Greater than 30 Minutes
[2017-09-23 12:20] VITALS: BP 125/54
== END 2017-09-23 13:00 | disposition home or self-care (01) | DRG 603 ==
LOC: ER 13:07 → EH 17:35 → UNDOADMIN 17:35 → 4N 20:45
PROVIDERS: ADMIT Emergency Medicine; ATTEND Emergency Medicine
DX: L03.116 Cellulitis of left lower limb (principal); F17.210 Nicotine dependence, cigarettes, uncomplicated; B95.5 Unspecified streptococcus as the cause of diseases classified elsewhere; W22.8XXA Striking against or struck by other objects, initial encounter; Y92.009 Unspecified place in unspecified non-institutional (private) residence as the place of occurrence of the external cause
CPT/HCPCS: 36415; 80048; 80053; 80202; 82550; 83036; 83605; 83735; 85025; 85027; 86140; 87040; 93971; 96365; 99285; J0690; J1650; J1885; J2543; J3370; J3490; J7030; J7060

== ENCOUNTER 2018-05-16 09:34 | Emergency (ER) | payer SELFPAY ==
[2018-05-16 09:38] VITALS: BP 151/76
[2018-05-16] MEDS ORDERED: LIDOCAINE 1% INJ-PF (10 MG/ML) 30 ML SDV INJ ONE (09:49)
--- NOTE | 2018-05-16 10:02 | ER Document Report ---
ED Oral Problem - General Chief Complaint: Mouth Problem Stated Complaint: POSSIBLE ABCESS Time Seen by Provider: 05/16/18 09:41 Mode of Arrival: Ambulatory Information source: Patient Notes: 37-year-old male presents to ED for an abscess to the upper palate on the right side. He states that it started small and is grown this is the third day. He states his little relief with ibuprofen. He states he took ibuprofen this morning. He has multiple decayed teeth both sides up and down. Patient is alert and oriented respirations regular and unlabored speaking in full sentences walk with even steady gait. I did consult Dr. Marie which stated that we should I&D this with a needle instead of with a knife as it is on the roof of the mouth. TRAVEL OUTSIDE OF THE [place] IN LAST 30 DAYS: No - HPI Patient complains to provider of: Other - Upper palate abscess Onset: Other Onset: Gradual Quality of pain: Pressure, Sharp Severity: Moderate Pain Level: 3 Sore throat: Moderate Swollen jaw/face: Moderate Associated symptoms: Other - Abscess to the upper palate Worsened by: Cold Relieved by: Nothing Similar symptoms previously: No Recently seen / treated by doctor/dentist: No - Related Data Allergies/Adverse Reactions: No Known Allergies Allergy (Verified 05/16/18 09:35) Past Medical History - General Information source: Patient - Social History Smoking Status: Current Every Day Smoker Chew tobacco use (# tins/day): No Frequency of alcohol use: None Drug Abuse: None Family History: Reviewed & Not Pertinent Patient has suicidal ideation: No Patient has homicidal ideation: No Endocrine Medical History: Denies: Hx Diabetes Mellitus Type 1, Hx Diabetes Mellitus Type 2 Renal/ Medical History: Denies: Hx Peritoneal Dialysis Psychiatric Medical History: Denies: Hx Depression - Immunizations Immunizations up to date: Yes Hx Diphtheria, Pertussis, Tetanus Vaccination: No Review of Systems - Review of Systems Notes: REVIEW OF SYSTEMS: CONSTITUTIONAL : Denies fever, chills, or sweats. Denies recent illness. EENT: Denies eye, ear, or throat pain or symptoms. Denies nasal or sinus congestion or discharge. Denies throat, tongue, or mouth swelling or difficulty swallowing. Abscess to the upper palate on the left CARDIOVASCULAR: Denies chest pain. Denies palpitations or racing or irregular heart beat. Denies ankle edema. RESPIRATORY: Denies cough, cold, or chest congestion. Denies shortness of breath, difficulty breathing, or wheezing. GASTROINTESTINAL: Denies abdominal pain or distention. Denies nausea, vomiting , or diarrhea. Denies blood in vomitus, stools, or per rectum. Denies black, tarry stools. Denies constipation. GENITOURINARY: Denies difficulty urinating, painful urination, burning, frequency, blood in urine, or discharge. MUSCULOSKELETAL: Denies back or neck pain or stiffness. Denies joint pain or swelling. SKIN: Denies rash, lesions or sores. HEMATOLOGIC : Denies easy bruising or bleeding. LYMPHATIC: Denies swollen, enlarged glands. NEUROLOGICAL: Denies confusion or altered mental status. Denies passing out or loss of consciousness. Denies dizziness or lightheadedness. Denies headache. Denies weakness or paralysis or loss of use of either side. Denies problems with gait or speech. Denies sensory loss, numbness, or tingling. Denies seizures. PSYCHIATRIC: Denies anxiety or stress. Denies depression, suicidal ideation, or homicidal ideation. ALL OTHER SYSTEMS REVIEWED AND NEGATIVE. Dictation was performed using [employer] recognition software PHYSICAL EXAMINATION: GENERAL: Well-appearing, well-nourished and in no acute distress. HEAD: Atraumatic, normocephalic. EYES: Pupils equal round and reactive to light, extraocular movements intact, sclera anicteric, conjunctiva are normal. ENT: Nares patent, oropharynx clear without exudates. Moist mucous membranes. Abscess to the upper palate on the left side of the mouth. Patient states is slowly progressed over the last 2 days. Patient denies any drainage. Patient states he has never had this before. NECK: Normal range of motion, supple without lymphadenopathy LUNGS: Breath sounds clear to auscultation bilaterally and equal. No wheezes rales or rhonchi. HEART: Regular rate and rhythm without murmurs ABDOMEN: Soft, nontender, nondistended abdomen. No guarding, no rebound. No masses appreciated. Musculoskeletal: Normal range of motion, no pitting or edema. No cyanosis. NEUROLOGICAL: Cranial nerves grossly intact. Normal speech, normal gait. Normal sensory, motor exams PSYCH: Normal mood, normal affect. SKIN: Warm, Dry, normal turgor, no rashes or lesions noted. Physical Exam - Vital signs Vitals: Temp Pulse Resp BP Pulse Ox 98.2 F 104 H 18 151/76 H 95 05/16/18 09:37 05/16/18 09:37 05/16/18 09:37 05/16/18 09:37 05/16/18 09:37 Course - Re-evaluation Re-evalutation: 05/16/18 17:54 Patient treated with clindamycin after the abscess was I&D. Patient was discharged home with clindamycin. Patient was instructed to follow-up with dentist as soon as possible. Patient was given instructions for salt and soda solution gargles several times a day for the next several days. Patient instructed to return immediately for any increase in symptoms. Abscess was draining well at time of discharge. - Vital Signs Vital signs: Temp Pulse Resp BP Pulse Ox 98.2 F 104 H 18 151/76 H 95 05/16/18 09:37 05/16/18 09:37 05/16/18 09:37 05/16/18 09:37 05/16/18 09:37 Procedures - Incision and Drainage Left upper palate Time completed: 09:55 Type: Simple Anesthetic type: 1% Lidocaine mL's of anesthetic: 2 Blade size: Other Incision Method: Incision made with needle Amount/type of drainage: Moderate amount of purulent drainage Discharge - Discharge Clinical Impression: Mouth abscess Condition: Stable Disposition: HOME, SELF-CARE Additional Instructions: The pain is due to an abscess to the roof of your mouth. You would be started on antibiotics while in the emergency room. The abscess was deflated with a needle and you will now need to use your tongue and press on the area several times a day to keep it deflated. The antibiotics will help to heal. It is extremely important that you follow-up with a dentist as soon as possible. CLINDAMYCIN: You have been given a prescription for the antibiotic clindamycin. It is often prescribed for infections in the mouth, such as dental infections or abscesses, and for skin infections due to MRSA. It's important that you take all the medication, unless instructed otherwise by your physician. Failure to complete the entire course can result in relapse of your condition. Common side effects of antibiotics include nausea, intestinal cramping, or diarrhea. Women may develop vaginal yeast infections, and babies can get yeast (thrush) in the mouth following the use of antibiotics. Contact your physician if you develop significant side effects from this medication. Allergy to this antibiotic can result in hives, wheezing, faintness, or itching. If symptoms of allergy occur, stop the medication and call the doctor. FOLLOW-UP CARE: You have been referred for follow-up care to the dentists listed below. Call the dentists office for an appointment as you were instructed or within the next two days. If you experience worsening or a significant change in your symptoms, notify the physician immediately or return to the Emergency Department at any time for re-evaluation. [facility] [address] [place], [place] [facility] [address] [place] [address] [facility] [address] [facility] [address] [facility] ([facility]) [facility] [address] [email or web address] [address] [place] [address] Monday- 8:00am to 5:00 pm Will see patients from other [facility]. Charges based on income and family size and accepts Medicare, Medicaid, and Insurances Will pull molars [facility] [id number] Hours of Operation 8:00 am - 4:30 pm weekdays The following dental offices accept Medicaid: [facility] Dr. Vazquez Dr. Rodriguez Dr. Romero Dr. Gann Navid Grant, [place], and Gail oral surgery Dr. Jacinto ([place]) Dr. Dodson ([place]) [facility] Drs. Ding ([place]) Dr. Roca ([place]) [facility] Dr. Lemus ([place]) Drs. Wan and ([place]) Medicaid Care Line Prescriptions: Clindamycin HCl 300 mg PO Q6 #28 capsule Forms: Elevated Blood Pressure, Smoking Cessation Education, Return to Work
[2018-05-16] MEDS ORDERED: CLINDAMYCIN HCL 150 MG CAPSULE PO ONE (10:05)
== END 2018-05-16 10:17 | disposition home or self-care (01) ==
LOC: ER 09:34
DX: K12.2 Cellulitis and abscess of mouth (principal); K02.9 Dental caries, unspecified; F17.200 Nicotine dependence, unspecified, uncomplicated
CPT/HCPCS: 99283; 42000; J3490

== ENCOUNTER 2019-05-22 12:13 | Observation (INO) | payer SELFPAY ==
--- NOTE | 2019-05-22 12:36 | ER Document Report ---
ED General - General Chief Complaint: Leg Swelling Stated Complaint: LEG SWELLING Time Seen by Provider: 05/22/19 12:27 TRAVEL OUTSIDE OF THE [place] IN LAST 30 DAYS: No - HPI Notes: Patient is a 38-year-old male with a history of cellulitis of the left lower leg who presents complaining of redness, pain, and swelling to the left lower leg primarily anterior over the past few days, but worsening over the past 24 hours. Patient states that he has been hospice before for cellulitis. He does not recall any insect bite. No IV drug abuse. No history of MRSA. He does not take any other medicines daily. Denies drug allergies. Denies any headache, fever, neck pain, URI, sore throat, chest pain, palpitations, syncope, cough, shortness of breath, wheeze, dyspnea, abdominal pain, nausea/vomiting/diarrhea, urinary retention, dysuria, hematuria, loss of control of bowel or bladder, numbness/tingling, saddle anesthesia, muscle paralysis/weakness. No h/o DVT/PE. - Related Data Allergies/Adverse Reactions: No Known Allergies Allergy (Verified 05/16/18 09:35) Past Medical History - Social History Smoking Status: Unknown if Ever Smoked Family History: Reviewed & Not Pertinent Endocrine Medical History: Denies: Hx Diabetes Mellitus Type 1, Hx Diabetes Mellitus Type 2 Renal/ Medical History: Denies: Hx Peritoneal Dialysis Psychiatric Medical History: Denies: Hx Depression - Immunizations Immunizations up to date: Yes Hx Diphtheria, Pertussis, Tetanus Vaccination: No Review of Systems - Review of Systems -: Yes All other systems reviewed and negative Physical Exam - Vital signs Vitals: Temp Pulse BP Pulse Ox 98.6 F 92 140/87 H 96 05/22/19 13:14 05/22/19 13:14 05/22/19 13:14 05/22/19 13:14 - Notes Notes: PHYSICAL EXAMINATION: GENERAL: Well-appearing, well-nourished and in no acute distress. HEAD: Atraumatic, normocephalic. EYES: Pupils equal round and reactive to light, extraocular movements intact, sclera anicteric, conjunctiva are normal. ENT: Nares patent and without discharge. oropharynx clear without exudates. No tonsilar hypertrophy or erythema. Moist mucous membranes. NECK: Normal range of motion, supple without lymphadenopathy LUNGS: Breath sounds clear to auscultation bilaterally and equal. No wheezes rales or rhonchi. HEART: Regular rate and rhythm without murmurs, rubs, gallops. ABDOMEN: Soft, nontender, nondistended abdomen. No guarding, no rebound. Normal bowel sounds present. No CVA tenderness bilaterally. Musculoskeletal: FROM to passive/active. Strength 5+/5. Left LE: the lower anterior leg is erythemic, very warm, and swollen with 1+ pitting edema. The erythema encompasses the majority of the lower leg extending proximaly to the knee, without obvious effusion. The knee has FROM w/o any discomfort otherwise. Extremities: No cyanosis, clubbing, or edema to the RLE, 1+ left as above. Peripheral pulses 2+. Capillary refill less than 3 seconds. NEUROLOGICAL: Normal speech, normal gait. Normal sensory, motor exams PSYCH: Normal mood, normal affect. SKIN: Warm, Dry, normal turgor, no rashes or lesions noted. Course - Re-evaluation Re-evalutation: 05/22/19 13:26 Patient is an afebrile, well-hydrated, 38-year-old male who presents with a left lower extremity cellulitis. Vitals are acceptable without significant tachycardia, tachypnea, or hypoxia. PE is otherwise unremarkable. Patient does have an elevated white blood cell count without bandemia. Cultures are pending. We will start him on Rocephin and vancomycin. He is otherwise nontoxic- appearing and is tolerating p.o. without difficulty. I did review with Dr. Yuan who accepted pt to admit to medical floor. Pt in agreement. - Vital Signs Vital signs: Temp Pulse Resp BP Pulse Ox 98.6 F 92 140/87 H 96 05/22/19 13:14 05/22/19 13:14 05/22/19 13:14 05/22/19 13:14 - Laboratory Result Diagrams: 05/22/19 12:47 05/22/19 12:47 Laboratory results interpreted by me: 05/22/19 05/22/19 12:47 12:47 WBC 16.2 H Lymph % (Auto) 7.7 L Absolute Neuts (auto) 13.8 H Seg Neutrophils % 85.5 H Glucose 131 H Discharge - Discharge Clinical Impression: Left leg cellulitis Condition: Stable Disposition: ADMITTED INPATIENT Admitting Provider: Lissy (Hospitalist) Unit Admitted: Medical Floor
[2019-05-22 13:00] LABS: ABSOLUTE EOSINOPHILS # (AUTO) 0.1 10^3/uL (0.0-0.6); ABSOLUTE LYMPHOCYTES (AUTO) 1.3 10^3/uL (0.5-4.7); ABSOLUTE NEUT (AUTO) 13.8 10^3/uL (1.7-8.2); BASOPHILS % (AUTO) 0.1 % (0-2); EOSINOPHILS % (AUTO) 0.5 % (0-6); HEMATOCRIT 47.3 % (37.9-51.0); HEMOGLOBIN 16.8 g/dL (13.5-17.0); LYMPHOCYTES % (AUTO) 7.7 % (13-45); MEAN CORPUSCULAR HEMOGLOBIN 33.2 pg (27.0-33.4); MEAN CORPUSCULAR HGB CONC 35.5 g/dL (32.0-36.0); MEAN CORPUSCULAR VOLUME 94 fl (80-97); MONOCYTES % (AUTO) 6.2 % (3-13); PLATELET COUNT 220 10^3/uL (150-450); RED BLOOD COUNT 5.06 10^6/uL (4.35-5.55); RED CELL DISTRIBUTION WIDTH 13.1 % (11.5-14.0); SEGMENTED NEUTROPHILS % (AUTO) 85.5 % (42-78); TOTAL CELLS COUNTED % (AUTO) 100 %; WHITE BLOOD COUNT 16.2 10^3/uL (4.0-10.5)
[2019-05-22 13:20] LABS: ALBUMIN 3.8 g/dL (3.5-5.0); ALKALINE PHOSPHATASE 80 U/L (38-126); ANION GAP 12 (5-19); ASPARTATE AMINO TRANSFERASE 34 U/L (17-59); BILIRUBIN,DIRECT 0.2 mg/dL (0.0-0.4); BILIRUBIN,TOTAL 0.7 mg/dL (0.2-1.3); BLOOD UREA NITROGEN 12 mg/dL (7-20); CALCIUM 9.3 mg/dL (8.4-10.2); CARBON DIOXIDE 23 mmol/L (22-30); CHLORIDE 105 mmol/L (98-107); GLUCOSE 131 mg/dL (75-110); POTASSIUM 4.1 mmol/L (3.6-5.0); TOTAL PROTEIN 7.5 g/dL (6.3-8.2)
[2019-05-22] MEDS ORDERED: CEFTRIAXONE 1 GM/D5W RTU 1 GM/50 ML RTUPB IV ONE (13:22)
[2019-05-22] MEDS ORDERED: VANCOMYCIN HCL INJ 1000 MG VIAL IV ONE (13:22)
[2019-05-22] MEDS ORDERED: NORMAL SALINE 1000 ML 2,000 ML IV PRN (15:50)
[2019-05-22] MEDS ORDERED: NICOTINE 21 MG/24 HR PATCH.TD24 TD PRN (15:56)
[2019-05-22] MEDS: OXYCODONE-ACETAMINOPHEN 5-325 MG TABLET PO PRN (16:10)
[2019-05-22] MEDS ORDERED: TEMAZEPAM 15 MG CAPSULE PO PRN (19:00)
[2019-05-22] MEDS ORDERED: ONDANSETRON 4 MG TAB.RAPDIS PO PRN (19:00)
[2019-05-22] MEDS ORDERED: ACETAMINOPHEN 325 MG TABLET PO PRN (19:00)
[2019-05-22] MEDS ORDERED: PROMETHAZINE HCL 25 MG TABLET PO PRN (19:00)
[2019-05-22] MEDS ORDERED: MAGNESIUM HYDROXIDE SUSP 30 ML UDCUP PO PRN (19:00)
[2019-05-22] MEDS ORDERED: MAG HYDROX/AL HYDROX/SIMETH SUSP 30 ML UDCUP PO PRN (19:00)
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
[2019-05-22] MEDS: FAMOTIDINE 20 MG TABLET PO SCH (22:03)
[2019-05-22] MEDS: NORMAL SALINE 1000 ML 1,000 ML IV PRN (22:03)
[2019-05-22] MEDS: ENOXAPARIN SODIUM INJ 40 MG/0.4 ML DISP.SYRIN SUBCUT SCH (22:03)
[2019-05-22] MEDS: AMPICILLIN SODIUM/SULBACTAM NA 1.5 GM in NORMAL SALINE 50 ML IV SCH (23:41)
[2019-05-23 05:11] LABS: ABSOLUTE EOSINOPHILS # (AUTO) 0.2 10^3/uL (0.0-0.6); ABSOLUTE LYMPHOCYTES (AUTO) 1.5 10^3/uL (0.5-4.7); ABSOLUTE MONOCYTES (AUTO) 0.6 10^3/uL (0.1-1.4); ABSOLUTE NEUT (AUTO) 5.8 10^3/uL (1.7-8.2); BASOPHILS % (AUTO) 0.4 % (0-2); HEMATOCRIT 38.9 % (37.9-51.0); LYMPHOCYTES % (AUTO) 18.3 % (13-45); MEAN CORPUSCULAR HEMOGLOBIN 32.8 pg (27.0-33.4); MEAN CORPUSCULAR HGB CONC 35.1 g/dL (32.0-36.0); MEAN CORPUSCULAR VOLUME 94 fl (80-97); MONOCYTES % (AUTO) 7.8 % (3-13); PLATELET COUNT 178 10^3/uL (150-450); RED BLOOD COUNT 4.16 10^6/uL (4.35-5.55); RED CELL DISTRIBUTION WIDTH 12.9 % (11.5-14.0); SEGMENTED NEUTROPHILS % (AUTO) 70.5 % (42-78); TOTAL CELLS COUNTED % (AUTO) 100 %; WHITE BLOOD COUNT 8.3 10^3/uL (4.0-10.5)
[2019-05-23 05:12] LABS: HEMOGLOBIN 13.7 g/dL (13.5-17.0)
[2019-05-23] MEDS: AMPICILLIN SODIUM/SULBACTAM NA 1.5 GM in NORMAL SALINE 50 ML IV SCH ×2 (06:19→11:00)
[2019-05-23] MEDS: FAMOTIDINE 20 MG TABLET PO SCH (10:46)
[2019-05-23] MEDS: OXYCODONE-ACETAMINOPHEN 5-325 MG TABLET PO PRN (10:51)
[2019-05-23] MEDS: ENOXAPARIN SODIUM INJ 40 MG/0.4 ML DISP.SYRIN SUBCUT SCH (10:52)
[2019-05-23] MEDS: NORMAL SALINE 1000 ML 1,000 ML IV PRN (10:56)
--- NOTE | 2019-05-23 11:39 | PDOC DISCHARGE SUMMARY ---
Impression - Admit/DC Date/PCP Admission Date/Primary Care Provider: 05/22/19 13:32 Discharge Date: 05/23/19 - Discharge Diagnosis (1) Left leg cellulitis Is this a current diagnosis for this admission?: Yes (2) Elevated blood pressure reading Is this a current diagnosis for this admission?: Yes (3) Lactic acidemia Is this a current diagnosis for this admission?: Yes (4) Leukocytosis Is this a current diagnosis for this admission?: Yes (5) Morbid obesity with BMI of 40.0-44.9, adult Is this a current diagnosis for this admission?: Yes (6) Nicotine dependence Is this a current diagnosis for this admission?: Yes - Assessment Summary: Patient was admitted for left leg cellulitis with elevated WBC count and lactic acidosis. However, patient did not meet sepsis criteria based of sofa score. Blood cultures were obtained at the time of admission. Patient was given empiric anti-biotics IV. Received a dose of Vanco and ceftriaxone and then continued to Unasyn. Patient's leukocytosis has subsequently resolved and lactic acidosis is resolved as well with administration of IV fluids. Patient states that his leg does look a little bit better from yesterday. I have demarcated the area of redness and asked patient to monitor to see if the redness continues to improve or if he starts to extend outside the demarcated region. As patient is currently stable with normal vital signs and daily improvement in infection, I will discharge patient on 7 days of Bactrim for treatment of his cellulitis. - Additional Information Resuscitation Status: Full Code Discharge Diet: As Tolerated Discharge Activity: Activity As Tolerated Prescriptions: Sulfamethoxazole/Trimethoprim [Bactrim Ds Tablet] 1 each PO BID #14 tablet Home Medications: Sulfamethoxazole/Trimethoprim [Bactrim Ds Tablet] 1 each PO BID #14 tablet 05/23/19 History of Present Illiness History of Present Illness: KRISTY HEADLEY is a 38 year old male who reports that 2 days ago he had chills and noticed that his leg was starting to be painful. Yesterday the leg became very painful and swollen with significant redness. There was no discharge noted. He has no numbness in his foot. Despite feeling chills yesterday he does not believe he has had a fever. His white blood cell count was elevated and his lactic acid was just above the upper limit normal. He was referred to the hospital service for admission for IV antibiotics and IV fluids. Physical Exam Vital Signs: Temp Pulse Resp BP Pulse Ox 97.4 F 85 16 141/71 H 96 05/23/19 08:07 05/23/19 08:07 05/23/19 08:07 05/23/19 08:07 05/23/19 08:07 Intake & Output 05/22/19 05/23/19 05/24/19 06:59 06:59 06:59 Intake Total 4054 Balance 4054 Weight 121 kg Results Laboratory Results: WBC 8.3 10^3/uL (4.0-10.5) 05/23/19 04:54 RBC 4.16 10^6/uL (4.35-5.55) L 05/23/19 04:54 Hgb 13.7 g/dL (13.5-17.0) D 05/23/19 04:54 Hct 38.9 % (37.9-51.0) 05/23/19 04:54 MCV 94 fl (80-97) 05/23/19 04:54 MCH 32.8 pg (27.0-33.4) 05/23/19 04:54 MCHC 35.1 g/dL (32.0-36.0) 05/23/19 04:54 RDW 12.9 % (11.5-14.0) 05/23/19 04:54 Plt Count 178 10^3/uL (150-450) 05/23/19 04:54 Lymph % (Auto) 18.3 % (13-45) 05/23/19 04:54 Titus % (Auto) 7.8 % (3-13) 05/23/19 04:54 Eos % (Auto) 3.0 % (0-6) 05/23/19 04:54 Baso % (Auto) 0.4 % (0-2) 05/23/19 04:54 Absolute Neuts (auto) 5.8 10^3/uL (1.7-8.2) 05/23/19 04:54 Absolute Lymphs (auto) 1.5 10^3/uL (0.5-4.7) 05/23/19 04:54 Absolute Monos (auto) 0.6 10^3/uL (0.1-1.4) 05/23/19 04:54 Absolute Eos (auto) 0.2 10^3/uL (0.0-0.6) 05/23/19 04:54 Absolute Basos (auto) 0.0 10^3/uL (0.0-0.2) 05/23/19 04:54 Seg Neutrophils % 70.5 % (42-78) 05/23/19 04:54 Sodium 140.2 mmol/L (137-145) 05/22/19 12:47 Potassium 4.1 mmol/L (3.6-5.0) 05/22/19 12:47 Chloride 105 mmol/L (98-107) 05/22/19 12:47 Carbon Dioxide 23 mmol/L (22-30) 05/22/19 12:47 Anion Gap 12 (5-19) 05/22/19 12:47 BUN 12 mg/dL (7-20) 05/22/19 12:47 Creatinine 0.83 mg/dL (0.52-1.25) 05/22/19 12:47 Est GFR ( Amer) > 60 (>60) 05/22/19 12:47 Est GFR (MDRD) Non-Af > 60 (>60) 05/22/19 12:47 Glucose 131 mg/dL (75-110) H 05/22/19 12:47 Lactic Acid 0.7 mmol/L (0.7-2.1) 05/23/19 04:54 Lactic Acid (Sepsis) 2.1 mmol/L (0.7-2.1) 05/22/19 12:47 Calcium 9.3 mg/dL (8.4-10.2) 05/22/19 12:47 Total Bilirubin 0.7 mg/dL (0.2-1.3) 05/22/19 12:47 Direct Bilirubin 0.2 mg/dL (0.0-0.4) 05/22/19 12:47 Neonat Total Bilirubin Not Reportable 05/22/19 12:47 Neonat Direct Bilirubin Not Reportable 05/22/19 12:47 Neonat Indirect Bili Not Reportable 05/22/19 12:47 AST 34 U/L (17-59) 05/22/19 12:47 ALT 30 U/L (<50) 05/22/19 12:47 Alkaline Phosphatase 80 U/L (38-126) 05/22/19 12:47 Total Protein 7.5 g/dL (6.3-8.2) 05/22/19 12:47 Albumin 3.8 g/dL (3.5-5.0) 05/22/19 12:47 Plan Time Spent: Less than 30 Minutes Stroke Is this a Stroke Patient?: No Acute Heart Failure - Is this a Heart Failure Patient?: No
[2019-05-23 13:25] VITALS: BP 149/75
== END 2019-05-23 14:00 | disposition home or self-care (01) ==
LOC: ER 12:13 → INTOOBSV 13:32 → EH 13:32 → 5 19:48
PROVIDERS: ADMIT Hospitalist; ATTEND Hospitalist
DX: L03.116 Cellulitis of left lower limb (principal); R03.0 Elevated blood-pressure reading, without diagnosis of hypertension; E87.2 Acidosis; D72.828 Other elevated white blood cell count; E66.01 Morbid (severe) obesity due to excess calories; F17.210 Nicotine dependence, cigarettes, uncomplicated; Z68.41 Body mass index [BMI] 40.0-44.9, adult
CPT/HCPCS: 99284; 36415 ×2; 87040; 83605 ×2; 85025 ×2; 80053; 99406; G0378 ×3; J1650 ×2; J0295 ×2; J7030 ×2; J3370; J0696

== ENCOUNTER 2019-08-21 14:58 | Emergency (ER) | payer SELFPAY ==
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
--- NOTE | 2019-08-21 16:52 | RADIOLOGY REPORT (SQ) ---
EXAM DESCRIPTION: CHEST 2 VIEWS COMPLETED DATE/TIME: 08/21/2019 4:44 pm REASON FOR STUDY: cough congestion COMPARISON: 05/09/2015. EXAM PARAMETERS: NUMBER OF VIEWS: two views TECHNIQUE: Digital Frontal and Lateral radiographic views of the chest acquired. RADIATION DOSE: NA LIMITATIONS: none FINDINGS: LUNGS AND PLEURA: No opacities, masses or pneumothorax. No pleural effusion. MEDIASTINUM AND HILAR STRUCTURES: No masses or contour abnormalities. HEART AND VASCULAR STRUCTURES: Heart normal size. No evidence for failure. BONES: No acute findings. HARDWARE: None in the chest. OTHER: No other significant finding. IMPRESSION: NO ACUTE RADIOGRAPHIC FINDING IN THE CHEST. TECHNICAL DOCUMENTATION: JOB ID: [id number] 2010 [employer]- All Rights Reserved Reading location - IP/workstation name: [email or web address]
[2019-08-21] MEDS ORDERED: PREDNISONE 20 MG TABLET PO ONE (16:54)
[2019-08-21] MEDS: ALBUTEROL SULFATE 0.083% NEB 2.5 MG/3 ML AMPUL NEB SCH ×2 (17:09→17:43)
[2019-08-21 17:12] VITALS: BP 155/80
[2019-08-21] MEDS ORDERED: ALBUTEROL SULFATE HFA (90 MCG/PUFF) 8 GM MDI (1 MDI/ER DISP) IH PRN (18:07)
== END 2019-08-21 18:16 | disposition home or self-care (01) ==
LOC: ER 14:58
DX: J40 Bronchitis, not specified as acute or chronic (principal); R05 Cough; R09.81 Nasal congestion; F17.210 Nicotine dependence, cigarettes, uncomplicated; J34.89 Other specified disorders of nose and nasal sinuses
CPT/HCPCS: 94640 ×2; 99283; 71046; J7512; J3490